=== PATIENT | male | born 1960 ===

== ENCOUNTER 2023-07-23 11:45 | Inpatient (IN) | payer OTHER ==
[~2023-07-23] VITALS: Ht 177.8 cm; Wt 89.4 kg
[2023-07-23] MEDS ORDERED: LIPITOR20 MG PO (13:59)
[2023-07-23] MEDS ORDERED: ZOCOR20 MG PO (13:59)
[2023-07-23] MEDS ORDERED: METFORMIN HCL500 M3 PO (13:59)
[2023-07-29] MEDS ORDERED: METRONIDAZOLE/SODIUM CHLORIDE 500 MG/100 ML PIGGYBACK IV ONE (13:37)
[2023-07-29] MEDS ORDERED: CEFTRIAXONE SODIUM 2,000 MG VIAL ONE (13:37)
[2023-07-29] MEDS ORDERED: LIDOCAINE HCL 1%/Epi 20ML VIAL IJ ONE (15:17)
[2023-07-29] MEDS ORDERED: ST. JOSEPH ASPI81 M2 (15:48)
[2023-07-29] MEDS ORDERED: JARDIANCE25 MG (15:48)
[2023-07-29] MEDS ORDERED: VITAMIN B-121000 MCG (15:48)
[2023-07-29] MEDS ORDERED: ATORVASTATIN CA40 MG (15:48)
[2023-07-29] MEDS ORDERED: FENOFIBRATE145 MG (15:48)
[2023-07-29] MEDS ORDERED: ENALAPRIL MALE2.5 MG (15:48)
[2023-07-29] MEDS ORDERED: SUGAMMADEX SODIUM 200 MG/2 ML VIAL IV ONE (17:21)
[2023-07-29] MEDS ORDERED: MORPHINE SULFATE 4 MG/ML CARTRIDGE IV PRN (17:45)
[2023-07-29] MEDS ORDERED: OxyCODONE HCL 5 MG TABLET (ROXICODONE) PO PRN (17:45)
[2023-07-29] MEDS ORDERED: INSULIN LISPRO 300 UNIT/3 ML UNITS SUBCUTANEO PRN (17:45)
[2023-07-29] MEDS ORDERED: RINGERS SOLUTION,LACTATED 1,000 ML IV SCH (17:45)
[2023-07-29] MEDS ORDERED: ONDANSETRON HCL 2 MG/ML VIAL IV PRN (17:45)
[2023-07-29] MEDS ORDERED: DEXTROSE 50 % IN WATER 0.5 G/ML DISP.SYRIN IV PRN (17:45)
[2023-07-29] MEDS ORDERED: ENALAPRILAT DIHYDRATE 1.25 MG/ML VIAL IV ONE ×2 (19:00→19:23)
[2023-07-29] MEDS ORDERED: hydrALAZINE HCL 20 MG VIAL ONE (19:23)
[2023-07-29] MEDS ORDERED: LABETALOL HCL 100 MG/20 ML ML ONE (19:35)
[2023-07-29] MEDS ORDERED: ACETAMINOPHEN 500 MG GEL..CAP PO SCH (20:00)
[2023-07-29 20:49] LABS: HEMATOCRIT 41.7 % (39.0-48.0); HEMOGLOBIN 13.7 g/dL (13-16.00); MEAN CORPUSCULAR HEMOGLOBIN 27.6 pg (27.00-32.0); MEAN CORPUSCULAR HGB CONC 32.9 g/dl (32.0-36.0); PLATELET COUNT 148 K/uL (150-450); RED BLOOD COUNT 4.97 M/uL (4.00-6.00); RED CELL DISTRIBUTION WIDTH 14.5 % (11.5-14.5)
[2023-07-29] MEDS ORDERED: FAMOTIDINE/PF 20 MG/2 ML VIAL IV PUSH SCH (21:00)
[2023-07-29] MEDS ORDERED: CELECOXIB 200 MG CAPSULE PO SCH (21:00)
[2023-07-29 21:18] LABS: ALBUMIN 3.4 gm/dL (3.4-5.0); CREATININE SERUM 0.89 mg/dL (0.70-1.30); GFR 86.06; MAGNESIUM 1.8 mg/dL (1.8-2.4); PHOSPHOROUS 3.1 mg/dL (2.5-4.9); POTASSIUM 4.19 mEq/L (3.5-5.1)
[2023-07-30] MEDS ORDERED: GABAPENTIN 300 MG CAPSULE PO SCH (01:00)
[2023-07-30 05:15] LABS: HEMATOCRIT 39.7 % (39.0-48.0); HEMOGLOBIN 13.4 g/dL (13-16.00); MEAN CELL VOLUME 82.6 fL (80.0-100.00); MEAN CORPUSCULAR HEMOGLOBIN 27.9 pg (27.00-32.0); MEAN CORPUSCULAR HGB CONC 33.7 g/dl (32.0-36.0); PLATELET COUNT 147 K/uL (150-450); RED CELL DISTRIBUTION WIDTH 14.6 % (11.5-14.5)
[2023-07-30 05:34] LABS: ALBUMIN 3.1 gm/dL (3.4-5.0); CALCIUM 8.5 mg/dL (8.5-10.1); CREATININE SERUM 0.9 mg/dL (0.70-1.30); GFR 84.95; MAGNESIUM 1.5 mg/dL (1.8-2.4); PHOSPHOROUS 3.7 mg/dL (2.5-4.9); POTASSIUM 3.95 mEq/L (3.5-5.1)
[2023-07-30] MEDS ORDERED: HYOSCYAMINE SULFATE 0.125 MG TAB.SUBL SL SCH (09:00)
[2023-07-30] MEDS ORDERED: POLYETHYLENE GLYCOL 3350 17 GM BLIST.PACK PO SCH (17:00)
[2023-07-30] MEDS ORDERED: ENOXAPARIN SODIUM 40 MG/0.4 ML SYRINGE SUBCUTANEO SCH (17:00)
[2023-07-31] MEDS ORDERED: ENOXAPARIN SODIUM 40 MG/0.4 ML SYRINGE SUBCUTANEO SCH (09:00)
[2023-07-31] MEDS ORDERED: LEVSIN0.125 MG PO (15:11)
[2023-07-31] MEDS ORDERED: METRONIDAZOLE/SODIUM CHLORIDE 500 MG/100 ML PIGGYBACK IV ONE (22:00)
[2023-07-31] MEDS ORDERED: SUGAMMADEX SODIUM 200 MG/2 ML VIAL IV ONE (22:00)
[2023-07-31] MEDS ORDERED: CEFTRIAXONE SODIUM 2,000 MG VIAL IV ONE (22:00)
== END 2023-07-31 17:32 | disposition home or self-care (01) | DRG 331 ==
LOC: SURH 07-29 07:00 → O/R 07-29 07:03 → SURH 07-29 11:45 → SURG 07-29 18:28
PROVIDERS: ADMIT Surgery; ATTEND Surgery
PROC: 0DJD8ZZ Inspection of Lower Intestinal Tract, Via Natural or Artificial Opening Endoscopic (ICD-10-PCS; 2023-07-29)
PROC: 07BB4ZZ Excision of Mesenteric Lymphatic, Percutaneous Endoscopic Approach (ICD-10-PCS; 2023-07-29)
PROC: 0DTN4ZZ Resection of Sigmoid Colon, Percutaneous Endoscopic Approach (ICD-10-PCS; principal; 2023-07-29 07:00)
DX: K57.32 Diverticulitis of large intestine without perforation or abscess without bleeding (principal); K59.09 Other constipation